=== PATIENT | female | born 1965 | race Two or more races ===

== ENCOUNTER 2018-02-02 05:50 | Emergency (ER) | payer MEDICAID ==
--- NOTE | 2018-02-02 07:00 | ED Physician Chart ---
ED Chief Complaint/HPI - Patient Information Date Seen:: 02/02/18 Time Seen:: 05:55 Chief Complaint:: knee pain History of Present Illness:: knee pain s/p fall on R knee. c/o L knee pain as well. Allergies:: Allergies Allergy/AdvReac Type Severity Reaction Status Date / Time No Known Allergies Allergy Verified 02/02/18 06:02 Vitals:: Vital Signs - 8 hr 02/02/18 05:50 Temp 97.9 F HR 79 RR 20 BP 124/56 O2 Sat % 97 ED Review of Systems - Review of Systems General/Constitutional: No fever, No chills, No weight loss, No weakness, No diaphoresis, No edema, No loss of appetite Skin: No skin lesions, No rash, No bruising Head: No headache, No light-headedness Eyes: No loss of vision, No pain, No diplopia ENT: No earache, No nasal drainage, No sore throat, No tinnitus Neck: No neck pain, No swelling, No thyromegaly, No stiffness, No mass noted Cardio Vascular: No chest pain, No palpitations, No PND, No orthopnea, No edema Pulmonary: No SOB, No cough, No sputum, No wheezing GI: No nausea, No vomiting, No diarrhea, No pain, No melena, No hematochezia, No constipation, No hematemesis G/U: No dysuria, No frequency, No hematuria Musculoskeletal: Bone or joint pain Endocrine: No polyuria, No polydipsia Psychiatric: No prior psych history, No depression, No anxiety, No suicidal ideation Hematopoietic: No bruising, No lymphadenopathy Allergic/Immuno: No urticaria, No angioedema Neurological: No syncope, No focal symptoms, No weakness, No paresthesia, No headache, No seizure, No dizziness, No confusion, No vertigo ED Past Medical History - Past Medical History Obtainable: Yes Family Medical History - Family Member Mother History Unknown: Yes ED Physical Exam - Physical Examination General/Constitutional: Awake, Well-developed, well-nourished, Alert, No distress, GCS 15, Non-toxic appearing, Ambulatory Head: Atraumatic Other Extremities comments:: pain in L knee with some swelling. R knee pain as well. No ligamentous instability R knee. Pain in L knee---difficult to assess. NV intact. no bruising. ED Assessment - Assessment General Assessment: sign out to Dr. Diggs at 7 a.m. ED Septic Shock - . Is Septic Shock (SBP<90, OR Lactate>4 mmol\L) present?: No - <6hrs of presentation: Vital Signs: Vital Signs - 8 hr 02/02/18 05:50 Temp 97.9 F HR 79 RR 20 BP 124/56 O2 Sat % 97 ED Reassessment (Disposition) - Reassessment Reassessment Condition:: Unchanged
--- NOTE | 2018-02-02 09:54 | Diagnostic Imaging Report ---
Right knee 3 views Indication: pain Comparison: none Findings: There is moderate to severe narrowing of the medial knee compartment with diffuse marginal osteophytic spurring. Mild to moderate narrowing of the patellofemoral knee compartment is also noted. No evidence of acute fracture or joint effusion. Diffuse marginal osteophytic spurs are noted including proximal patellar spurring. Impression: No evidence of an acute fracture. Moderate to advanced degenerative changes greatest within the medial knee joint compartment. In the setting of trauma, if clinical symptoms persist and there is continued concern for an occult fracture, follow up exams in 5-7 days is suggested.
--- NOTE | 2018-02-02 09:55 | Diagnostic Imaging Report ---
Left knee 3 views Indication: Left knee pain Comparison: none Findings: There is mild to moderate narrowing of the medial knee compartment with marginal osteophytic spurs. No evidence of an acute fracture or joint effusion. No focal soft tissue swelling. Impression: No evidence of an acute fracture. [id number] degenerative changes, greatest within the medial knee compartment. In the setting of trauma, if clinical symptoms persist and there is continued concern for an occult fracture, follow up exams in 5-7 days is suggested.
== END 2018-02-02 07:46 | disposition home or self-care (01) ==
LOC: ER 05:50
DX: S83.92XA Sprain of unspecified site of left knee, initial encounter (principal); M25.561 Pain in right knee; W19.XXXA Unspecified fall, initial encounter; Y93.89 Activity, other specified; Y92.89 Other specified places as the place of occurrence of the external cause; Y99.8 Other external cause status
CPT/HCPCS: 73562-TC-LT; 73562-TC-RT; Z7502